=== PATIENT | female | born 1985 | race Caucasian/White ===

== ENCOUNTER 2017-02-14 23:35 | Emergency (ER) | payer OTHER ==
[~2017-02-14] VITALS: Ht 165.1 cm; Wt 81.6 kg
[2017-02-14] MEDS ORDERED: [UNRECOGNIZED DRUG - CODE] PO (23:49)
[2017-02-14] MEDS ORDERED: GAS-80CH PO (23:49)
[2017-02-14] MEDS ORDERED: CABE0.5T (23:49)
[2017-02-14] MEDS ORDERED: BREO1INH INH (23:49)
[2017-02-14] MEDS ORDERED: CITA20TA4 PO (23:49)
[2017-02-15] MEDS ORDERED: MORPHINE 4 MG/ML 1ML SYRINGE IV ONE (00:45)
[2017-02-15] MEDS ORDERED: NS 1,000 ML IV ONE ×2 (00:45→04:00)
[2017-02-15 01:02] LABS: BASO % 0.3 % (0.0-1.0); EOS # 0.1 K/mm3 (0.0-0.50); EOS % 1.1 % (0.0-3.0); LARGE UNSTAINED CELL # 0.1 K/mm3 (0.0-0.4); LARGE UNSTAINED CELL % 0.8 % (0.0-4.0); LYMPH % 20.7 % (24.0-44.0); MEAN CORPUSCULAR HEMOGLOBIN 29.5 pg (27.0-33.0); MEAN CORPUSCULAR HGB CONC 33.3 g/dl (32.0-36.5); MEAN CORPUSCULAR VOLUME 88.5 fl (80.0-96.0); MONO # 0.2 K/mm3 (0.0-0.8); MONO % 2.5 % (0.0-5.0); NEUTROPHILS # 7.1 K/mm3 (1.8-7.7); NEUTROPHILS % 74.7 % (36.0-66.0); PLATELET COUNT, AUTOMATED 285 k/mm3 (150-450); RED CELL DISTRIBUTION WIDTH 12.8 % (11.5-14.5); WHITE BLOOD COUNT 9.5 K/mm3 (4.0-10.0)
[2017-02-15 01:33] LABS: CONTROL LINE HCG INT CTR LINE PRESENT
[2017-02-15 01:57] LABS: ALBUMIN 3.7 GM/DL (3.2-5.2); ALBUMIN/GLOBULIN RATIO 1.12 (1.00-1.93); ALKALINE PHOSPHATASE 50 U/L (45-117); ALT/SGPT 32 U/L (12-78); AMYLASE 41 U/L (25-115); ANION GAP 8 MEQ/L (8-16); AST/SGOT 24 U/L (15-37); BILIRUBIN,DIRECT 0.1 MG/DL (0.0-0.2); BILIRUBIN,TOTAL 0.4 MG/DL (0.2-1.0); BLOOD UREA NITROGEN 19 MG/DL (7-18); CALCIUM LEVEL 9.3 MG/DL (8.5-10.1); CARBON DIOXIDE LEVEL 29 MEQ/L (21-32); CHLORIDE LEVEL 103 MEQ/L (98-107); CREATININE FOR GFR 1.23 MG/DL (0.55-1.02); GLOMERULAR FILTRATION RATE 54.2 (>60); GLUCOSE, FASTING 113 MG/DL (70-105); POTASSIUM SERUM 4.2 MEQ/L (3.5-5.1); SODIUM LEVEL 140 MEQ/L (136-145)
--- NOTE | 2017-02-15 03:10 | REPUSA ---
CLINICAL HISTORY: Abdominal pain. TECHNIQUE: Multiple axial, sagittal and coronal CT images were obtained through the abdomen and pelvi s without administration of oral or IV contrast material. COMMENTS: The liver is of uniform attenuation without mass or defect. There is no intra or extrahepatic biliary ductal dilatation. The spleen is normal. The gallbladder is within normal limits. The pancreas is of normal contour and attenuation characteristics. There is no evidence of adrenal mass. 3.2 mm obstructing stone of the distal right ureter just above the right ureterovesical junction. Mil d right hydroureteronephrosis. The kidneys are otherwise normal in size, shape and configuration. No renal or ureteral calculi are i dentified. There is no left hydroureter or hydronephrosis. Small sliding hiatal hernia. There is no evidence for appendicitis. There is no bowel wall thickening. No evidence for small or la rge bowel obstruction. There is no evidence of abdominal ascites or lymphadenopathy. There is no evidence of intrinsic or extrinsic bladder mass. There is no pelvic ascites or lymphadeno swetha. Images of the lung bases show no evidence of pleural or parenchymal mass. There are no pleural effusi ons. The bony structures are free of lytic or blastic lesions. IMPRESSION: Obstructing stone of the distal aspect of the right ureter. Mild right hydroureteronephrosis. Small sliding hiatal hernia. Diffusely thickened bladder. Underdistention versus mild cystitis. Moderate large bowel fecal stasis. Thank you for your kind referral of this patient.
[2017-02-15] MEDS ORDERED: KETOROLAC 30 MG/ML VIAL (J1885) IV ONE (04:00)
[2017-02-15] MEDS ORDERED: VICO5TAB16 PO (05:53)
[2017-02-15 06:36] VITALS: BP 98/62
== END 2017-02-15 06:38 | disposition home or self-care (01) ==
LOC: M ED 02-15 00:44
DX: N13.2 Hydronephrosis with renal and ureteral calculous obstruction (principal); K44.9 Diaphragmatic hernia without obstruction or gangrene; K56.41 Fecal impaction; D35.2 Benign neoplasm of pituitary gland; F32.9 Major depressive disorder, single episode, unspecified; Z79.51 Long term (current) use of inhaled steroids; Z79.899 Other long term (current) drug therapy
CPT/HCPCS: 74176; 80048; 80076; 81001; 82150; 83690; 84703; 85025; 87086; 96361; 96374; 96375; 99283; J1885

== ENCOUNTER → 2019-06-08 | Outpatient (REF) | payer OTHER ==
[~2019-06-08] MED LIST: BREO1INH INH; CABE0.5T; CITA20TA6 PO; GAS-80CH PO; VICO5TAB17 PO; [UNRECOGNIZED DRUG - CODE] PO
== END ==
LOC: M SFHCLERA 15:47
PROVIDERS: ATTEND Nurse Practitioner Family
DX: R53.81 Other malaise (principal)

== ENCOUNTER → 2020-03-31 | Outpatient (CLI) | payer OTHER ==
--- NOTE | 2020-03-31 12:07 | REP ---
Clinical: Trauma. Technique: Frontal view of the chest with four views of the right hemithorax. Findings: Frontal view of the chest demonstrates no acute cardiopulmonary process. Oblique views demonstrate subtle fracture along the anterior margin of the right eighth and ninth ribs. Impression: Subtle fractures along the anterior margin of the right eighth and ninth ribs. Electronically Signed by Compa Archuleta MD 03/31/2020 12:00 P
== END ==
LOC: M WUC 11:40
PROVIDERS: ATTEND Physician Assistant
DX: S22.41XA Multiple fractures of ribs, right side, initial encounter for closed fracture (principal); X58.XXXA Exposure to other specified factors, initial encounter; Y92.89 Other specified places as the place of occurrence of the external cause